=== PATIENT | female | born 1960 | race Caucasian/White ===

== ENCOUNTER 2019-04-06 12:55 | Outpatient (CLI) | payer OTHER, SELFPAY ==
--- NOTE | 2019-04-06 13:00 | ECG_ITS ---
Measurements Intervals [place] Rate: 83 P: 52 AL: 185 QRS: -6 QRSD: 90 T: 36 QT: 381 QTc: 449 Interpretive Statements SINUS RHYTHM LOW QRS VOLTAGE IN PRECORDIAL LEADS DELAYED PRECORDIAL R/S TRANSITION BASELINE ARTIFACT- I, II, III, AVR, AVL, AVF, V1-V6 BORDERLINE ECG Electronically Signed On 04-06-2019 16:25:34 DEPLOYMENT TECHNICIAN by Clyde Chavez D.O.
[2019-04-06 13:28] LABS: Hematocrit 40.2 % (37.0-47.0); Hemoglobin 13.5 g/dL (12.0-15.0)
[2019-04-06 13:42] LABS: Blood Urea Nitrogen 17 mg/dL (7-17); Calcium 9.2 mg/dL (8.4-10.2); Carbon Dioxide 23 mmol/L (22-30); Chloride 102 mmol/L (98-107); Estimated Glomerular Filt Rate > 60; Glucose 93 mg/dL (65-105); Potassium 4.7 mmol/L (3.4-5.0); Sodium 138 mmol/L (137-145)
== END 2019-04-06 12:56 | disposition home or self-care (01) ==
LOC: ANHSURGERY 13:00
PROVIDERS: Anesthesiology; Visit Provider Plastic Surgery
DX: Z01.818 Encounter for other preprocedural examination (principal); Z98.890 Other specified postprocedural states; D64.9 Anemia, unspecified
CPT/HCPCS: 36415; 80048; 85014; 85018; 93005

== ENCOUNTER 2019-04-18 00:38 | Day surgery (SDC) | payer OTHER, SELFPAY ==
[2019-04-03 17:21] VITALS: BMI 45.7
--- NOTE | 2019-04-17 21:04 | HP_ITS ---
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 HISTORY: This patient is 59. She was referred to me in February 2019, with left ulnar hand weakness and numbness. She has a history of having had somewhat recently right carpal tunnel release and right cubital tunnel release in 2018 and left cubital tunnel release in 2019. She says both of the ulnar nerves were transposed subcutaneously. She believes she got better after each surgery. She had a nerve conduction test prior to each surgery, but has had relapsing of ulnar digit numbness on the right hand and the left hand. She says this causes some trouble driving. She drops some things. 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 She believes onset of these symptoms was approximately a year ago. She has undergone some therapy. She apparently is being treated for some nerve pain with Lyrica and gabapentin. She does not tolerate those well. We have repeated a nerve conduction test. This is done by Dr. Leahy on March 22, 2019. This indicates bilateral ulnar neuropathy at the elbows. We have evaluated her couple of times and we have seen her in March. X-rays done of her wrists show moderate osteoarthritis of the 1st carpometacarpal joint on the right and mild at the same site on the left. She has had cervical spine films. She has consented to the re-exploration of the ulnar nerve at the right elbow under MAC anesthetic. MEDICATIONS: She takes some levothyroxine, Cymbalta. She uses some Tylenol No.3, was last filled on in middle march. ALLERGIES: SHE SAYS SHE HAS AN ALLERGY TO LYRICA. PAST SURGICAL HISTORY: She has had a tonsillectomy. She has had a gastric bypass in 2007. She has had an abdominoplasty. She has had a knee replacement, hernia repair. SOCIAL HISTORY: She is a nonsmoker. She is intolerant to NSAIDs because of her bad bypass. She does take iron supplements and drink cold Juice Plus and she takes vitamin B12. PHYSICAL EXAMINATION: She is an alert, informative lady. She is 5 feet, 8 inches, weight 293 pounds. She is in no distress, but reports frequently on condition of her hands, saying how much she can do and how numb the ulnar digits are. ASSESSMENT: She has recurrent ulnar neuropathy at the elbows and we are planning a reexploration of the right cubital tunnel region to release compression on the right ulnar nerve at the elbow under MAC anesthetic. D I MT: Erich PERES
--- NOTE | 2019-04-18 07:24 | WPDHPUPDATE1 ---
History and Physical Update Update Date/Time: 04/18/19 07:24 History and Physical has been reviewed, including an updated exam of the patient. There are NO changes in the patient's condition. Risks, benefits, and alternatives have been discussed and questions answered. Patient agrees to proceed with procedure.
--- NOTE | 2019-04-18 07:51 | WPDANESEPPF ---
Anes - Initial Pre Proc Eval Procedure: Operation Date: 04/18/19 09:00 Proposed Procedures p Right Ulnar Neuroplasty At The Elbow - Ramesh Vazquez MD Date/Time: 04/18/19 07:51 Surgeon: Ramesh Vazquez MD Pre Op Diagnosis: Ulnar Neuropathy Right Upper Limb Patient Data Age: 59 Gender: F Height: 5 ft 8 in Weight: 136.44 kg Allergies Allergy/AdvReac Type Severity Reaction Status Date / Time pregabalin [From Lyrica] AdvReac Intermediate Dizziness Verified 04/03/19 17:45 NSAIDS (Non-Steroidal AdvReac Unknown Verified 04/03/19 18:02 Anti-Inflamma Home Medications Medication Instructions Recorded Confirmed Type Iron (ferrous sulfate) 27 mg PO BID 04/03/19 04/03/19 History acetaminophen-codeine 1 tablet PO PRN PRN 04/03/19 04/03/19 History doxepin 25 mg PO QPM 04/03/19 04/03/19 History duloxetine 60 mg PO QPM 04/03/19 04/03/19 History levothyroxine 100 mcg PO DAILY 04/03/19 04/03/19 History losartan 25 mg PO DAILY 04/03/19 04/03/19 History spironolactone 100 mg PO BID 04/03/19 04/03/19 History Patient hx anesthesia problems: none Family hx anesthesia problems: none [facility] Past Medical History Medical History (Updated 04/18/19 @ 07:51 by Jerome Urban MD) Anxiety Depression Hypertension Hypothyroid Morbid obesity Anes - Eval Final PreProcedure Day of Procedure 04/18/19 07:51 Patient weight: morbidly obese Heart: regular rate and rhythm Lungs: clear to auscultation Airway: Mallampati scale class II Neurological: alert and oriented Last oral intake: >/= 8 hours ASA classification: III Emergent: no Anesthetic plan: proceed Anesthesia type and monitoring: general LMA and standard monitoring Informed Consent: The patient's anesthetic plan and its attendant risks and benefits were discussed with the patient/family/POA. Questions were solicited and answers provided to the satisfaction of the patient/family/POA.
[2019-04-18 07:59] VITALS: BP 146/86; PULSE 78; RESP 20; TEMP 36.6; O2SAT 97
[2019-04-18] MEDS: LACTATED RINGERS 1,000 ML 30 ML IV CONT (08:01)
--- NOTE | 2019-04-18 08:51 | WPDANESEPPF ---
Anes - Initial Pre Proc Eval Procedure: Operation Date: 04/18/19 09:00 Proposed Procedures p Right Ulnar Neuroplasty At The Elbow - Ramesh Vazquez MD Date/Time: 04/18/19 08:51 Surgeon: Ramesh Vazquez MD Pre Op Diagnosis: Ulnar Neuropathy Right Upper Limb Patient Data Age: 59 Gender: F Height: 5 ft 8 in Weight: 135.2 kg Last Vital Signs Temp 97.9 F 04/18/19 07:59 Pulse 78 04/18/19 07:59 Resp 20 04/18/19 07:59 BP 146/86 H 04/18/19 07:59 Pulse Ox 97 04/18/19 07:59 Allergies Allergy/AdvReac Type Severity Reaction Status Date / Time pregabalin [From Lyrica] AdvReac Intermediate Dizziness Verified 04/03/19 17:45 NSAIDS (Non-Steroidal AdvReac Unknown Verified 04/03/19 18:02 Anti-Inflamma Home Medications Medication Instructions Recorded Confirmed Type Iron (ferrous sulfate) 27 mg PO BID 04/03/19 04/18/19 History acetaminophen-codeine 1 tablet PO PRN PRN 04/03/19 04/18/19 History doxepin 25 mg PO QPM 04/03/19 04/18/19 History duloxetine 60 mg PO QPM 04/03/19 04/18/19 History levothyroxine 100 mcg PO DAILY 04/03/19 04/18/19 History losartan 25 mg PO DAILY 04/03/19 04/18/19 History spironolactone 100 mg PO BID 04/03/19 04/18/19 History Patient hx anesthesia problems: none Family hx anesthesia problems: none [facility] Past Medical History Medical History (Updated 04/18/19 @ 07:51 by Jerome Urban MD) Anxiety Depression Hypertension Hypothyroid Morbid obesity Anes - Eval Final PreProcedure Day of Procedure 04/18/19 08:51 Patient weight: morbidly obese Heart: regular rate and rhythm Lungs: clear to auscultation Airway: Mallampati scale class III Neurological: alert and oriented Last oral intake: >/= 8 hours ASA classification: IV Emergent: no Anesthetic plan: proceed Anesthesia type and monitoring: general GIVS and standard monitoring Informed Consent: The patient's anesthetic plan and its attendant risks and benefits were discussed with the patient/family/POA. Questions were solicited and answers provided to the satisfaction of the patient/family/POA.
[2019-04-18] MEDS: LIDO 1%/EPINEPHRINE 1:100,000 20 ML VIAL 10 ML INFILTRATE (09:54)
--- NOTE | 2019-04-18 10:02 | SUR.OPER ---
ebl:[id number]
--- NOTE | 2019-04-18 10:17 | PM.OP ---
Procedure Note - Brief Procedure Note - Brief Date of procedure: 04/18/19 Pre-op diagnosis: Ulnar Neuropathy Right Upper Limb Post-op diagnosis: same Procedure performed: Left ulnar neuroplasty at the elbow. Anesthesia: MAC Surgeon: Ramesh Vazquez MD Career Professional: Teresa Estimated blood loss (mL): 5 Tourniquet time (min): 16 Drains: No Packing: No Pathology: none sent Complications: No immediate complications Condition: stable Disposition: same day
[2019-04-18 10:35] VITALS: BP 132/72; PULSE 92; RESP 16; TEMP 36.6; O2SAT 92
--- NOTE | 2019-04-18 10:36 | PM.PROC ---
Procedure Note - Detailed Date of procedure: 04/18/19 Pre-op diagnosis: Ulnar Neuropathy Right Upper Limb Recurrent ulnar compression neuropathy at the right elbow. Post-op diagnosis: same Procedure performed: Right ulnar neuroplasty at the elbow. Description of procedure: Laura has undergone bilateral ulnar neuroplasty several years ago. She said she did well initially. For the past year and a half for so she has had recurring symptoms. She believes that the nerve was transposed in both cases. The scar on the left side is considerably longer than the 1 on the right. Her main complaints are numbness in the ulnar 2 digits. The site on the right elbow was marked in the holding area. She was taken to the operating room and placed supine on the operating table. She was given IV sedation time-out was held and confirmed the right upper extremity was prepped and draped in usual fashion. The site was remarked for an incision that would parallel the course of the ulnar nerve. This deviated somewhat from her existing scar. This line was infiltrated with 1% lidocaine with epinephrine. The tourniquet was inflated to 250 mmHg. The elbow was flexed and supported on folded towels. The incision was made as marked and dissection was carried through the ample subcutaneous tissue to the posterior aspect of the medial epicondyle. Along the way we identified a seroma near the olecranon. This contained clear fluid. It did not appear to lie in a position that would compress the ulnar nerve. It would not have contained more than 5 milliliter of fluid. The nerve was identified just anterior to the triceps muscle at the posterior aspect of the olecranon. This did not appear to be in a transposed position. Dissection followed the nerve proximally to completely release any structures overlying it for a distance of at least 5 cm no significant bleeding was caused. Of following there were distally there was overlying fascial tissue in the region between the olecranon and the medial epicondyle. The nerve under this area appears slightly darker and there were more vessels tracking the nerve in this area. We did not notice significant deformity of the nerve. The nerve was followed distally under the flexor muscle fascia. This was also released at least 5 cm in the upper forearm again no significant bleeding was started. Did not appear that the nerve had been transposed nor did not need to be. The tourniquet was released and bleeding points were meticulously coagulated on a Bovie setting of 20. To once the wound appeared dry the wound margins were approximated 2 deep sutures were placed to try to approximate the tissue around the seroma. And the dermis was approximated and cross hatched marked. These sutures were 3-0 Monocryl. The skin was then closed with running intradermal 3-0 Monocryl. The usual gauze and Keshav wrap bandage was applied. Patient received no antibiotics. Estimated blood loss 5 milliliter. Patient is discharged home with instructions in wound care and follow-up. She will have hydrocodone 07/07/2024 prescribed for discharge 10. Anesthesia: MAC Surgeon: Ramesh Vazquez MD Entry Level Software Engineer: Teresa
[2019-04-18 11:05] VITALS: BP 144/95; PULSE 81; RESP 20
== END 2019-04-18 11:35 | disposition home or self-care (01) ==
PROVIDERS: Visit Provider Plastic Surgery
PROC: (CPT 64718; principal; 2019-04-18 09:00)
DX: G56.21 Lesion of ulnar nerve, right upper limb (principal); I10 Essential (primary) hypertension; E03.9 Hypothyroidism, unspecified; F41.8 Other specified anxiety disorders; E66.01 Morbid (severe) obesity due to excess calories; Z68.42 Body mass index [BMI] 45.0-49.9, adult
CPT/HCPCS: 64718; A9270; J2250; J2704; J3010; J7120

== ENCOUNTER 2019-07-25 12:42 | Outpatient (CLI) | payer OTHER, SELFPAY ==
--- NOTE | ~2019-07-25 | XR_ITS ---
EXAMINATION: XR sm joint inject/asp w image DATE: 07/25/2019 13:42 INDICATION: Osteoarthritis with pain at the right first carpal metacarpal joint TECHNIQUE: A time-out was performed to verify the patient's name, date of , and procedure to b e performed. The procedure including the risks, benefits, and alternatives was discussed with the pat ient. Risks discussed included bleeding and infection. The patient understood the risks and agreed to proceed. The skin overlying the dorsal aspect of the right first carpal metacarpal joint was preppe d and draped in usual sterile fashion. Anesthetic was administered with 1% lidocaine subcutaneously. A 23 G needle was advanced under fluoroscopic guidance into the joint. Injection of 0.4 mL of Omni paque 240 confirmed intra-articular position of the needle. Subsequently, injectate consisting of 1 mg of 6 mg/mL betamethasone for a total dosage of 6 mg of betamethasone was instilled. Washout of con trast was seen confirming intra-articular administration. The needle was removed and the entry site w as cleaned and dressed. There were no immediate complications. Fluoroscopy exposure time was 0.4 min utes. The total number of images was 2. FINDINGS: Real-time fluoroscopy demonstrates the needle in the right first carpometacarpal joint. Pat ient's pain prior to procedure:09/13. Patient's pain following the procedure: 11/14. IMPRESSION: 1. Successful right first carpal metacarpal joint steroid injection. Reviewed, dictated and finalized at location A.
== END 2019-07-25 12:43 | disposition home or self-care (01) ==
PROVIDERS: Visit Provider Plastic Surgery
DX: M19.041 Primary osteoarthritis, right hand (principal)
CPT/HCPCS: 20600; 77002; J0702; Q9966

== ENCOUNTER 2019-09-24 00:56 | Outpatient (CLI) | payer OTHER, SELFPAY ==
[2019-09-24 19:20] LABS: SARS-CoV-2 RNA PCR Negative
== END 2019-09-24 00:57 | disposition home or self-care (01) ==
LOC: ANHCOVIDDT 00:56
PROVIDERS: Anesthesiology; Visit Provider Plastic Surgery
DX: Z01.812 Encounter for preprocedural laboratory examination (principal); Z11.59 Encounter for screening for other viral diseases
CPT/HCPCS: 36415; 80048; 87635; C9803; U0003

== ENCOUNTER 2019-09-24 07:38 | Outpatient (CLI) | payer OTHER, SELFPAY ==
[2019-09-24 08:11] LABS: Blood Urea Nitrogen 16 mg/dL (7-17); Calcium 9.1 mg/dL (8.4-10.2); Carbon Dioxide 23 mmol/L (22-30); Chloride 106 mmol/L (98-107); Estimated Glomerular Filt Rate > 60; Glucose 94 mg/dL (65-105); Potassium 4.2 mmol/L (3.4-5.0); Sodium 137 mmol/L (137-145)
== END 2019-09-24 07:39 | disposition home or self-care (01) ==
PROVIDERS: Anesthesiology; Visit Provider Plastic Surgery
DX: I10 Essential (primary) hypertension (principal)
CPT/HCPCS: 36415; 80048

== ENCOUNTER 2019-09-26 02:26 | Day surgery (SDC) | payer OTHER, SELFPAY ==
[2019-09-13 13:41] VITALS: BMI 46.2
[2019-09-26] VITALS (7 sets, daily range): BP systolic 104–155; BP diastolic 56–93; PULSE 75–91; RESP 15–20; TEMP 36.3–36.5; O2SAT 98–100
--- NOTE | 2019-09-26 07:14 | WPDANESEPPF ---
Anes - Initial Pre Proc Eval Procedure: Operation Date: 09/26/19 07:30 Proposed Procedures p Left Ulnar Neuroplasty At The Elbow - Ramesh Vazquez MD Date/Time: 09/26/19 07:14 Surgeon: Ramesh Vazquez MD Pre Op Diagnosis: Left Cubital Tunnel Syndrome Patient Data Age: 59 Gender: F Height: 5 ft 8.5 in Weight: 140 kg Allergies Allergy/AdvReac Type Severity Reaction Status Date / Time pregabalin [From Lyrica] AdvReac Intermediate Dizziness Verified 09/13/19 13:39 NSAIDS (Non-Steroidal AdvReac Unknown Gastrointestinal Verified 09/13/19 13:39 Anti-Inflamma Upset Home Medications Medication Instructions Recorded Confirmed Type Iron (ferrous sulfate) 27 mg PO BID 04/03/19 09/13/19 History acetaminophen-codeine 1 tablet PO PRN PRN 04/03/19 09/13/19 History doxepin 25 mg PO QPM 04/03/19 09/13/19 History duloxetine 60 mg PO QPM 04/03/19 09/13/19 History levothyroxine 100 mcg PO DAILY 04/03/19 09/13/19 History losartan 25 mg PO DAILY 04/03/19 09/13/19 History spironolactone 100 mg PO BID 04/03/19 09/13/19 History Patient hx anesthesia problems: none Family hx anesthesia problems: none [facility] Past Medical History Medical History (Updated 04/18/19 @ 07:51 by Jerome Urban MD) Anxiety Depression Hypertension Hypothyroid Morbid obesity Social History Social History Smoking status: Never smoker Alcohol use details: LAST DRINK 3 MONTHS AGO Substance use: never Living arrangements: alone Anes - Eval Final PreProcedure Day of Procedure 09/26/19 07:14 Patient weight: morbidly obese Heart: regular rate and rhythm Lungs: clear to auscultation Airway: Mallampati scale class III Neurological: alert and oriented Last oral intake: >/= 8 hours ASA classification: III Emergent: no Anesthetic plan: proceed Anesthesia type and monitoring: general LMA and standard monitoring Informed Consent: The patient's anesthetic plan and its attendant risks and benefits were discussed with the patient/family/POA. Questions were solicited and answers provided to the satisfaction of the patient/family/POA.
--- NOTE | 2019-09-26 07:15 | WPDHPUPDATE1 ---
History and Physical Update Update Date/Time: 09/26/19 07:15 History and Physical has been reviewed, including an updated exam of the patient. There are NO changes in the patient's condition. Risks, benefits, and alternatives have been discussed and questions answered. Patient agrees to proceed with procedure.
--- NOTE | 2019-09-26 07:20 | PM.IMHP ---
H&P: HPI History of Present Illness Chief complaint: Left Cubital Tunnel Syndrome Narrative: Laura Castro is a 59 year old female recurrent left cubital tunnel syndrome. Documented by NCV. Had been operated with anterior transposition around 2016 elsewhere. Did well for a while. Now C/O pain weakness and numbness in ulnar digits. She is aware of possible complications having had similar procedures done three times in the past. Review of Systems Review of Systems: Narrative: Multiple hand complaints related to several other diagnoses. Constitutional: Comments: See dictated H&P PMFSH Past Medical History Medical History (Updated 04/18/19 @ 07:51 by Jerome Urban MD) Anxiety Depression Hypertension Hypothyroid Morbid obesity Social History Social History Smoking status: Never smoker Alcohol use details: LAST DRINK 3 MONTHS AGO Substance use: never Living arrangements: alone Meds Home Medications and Allergies Home Medications Medication Instructions Recorded Confirmed Type Iron (ferrous sulfate) 27 mg PO BID 04/03/19 09/13/19 History acetaminophen-codeine 1 tablet PO PRN PRN 04/03/19 09/13/19 History doxepin 25 mg PO QPM 04/03/19 09/13/19 History duloxetine 60 mg PO QPM 04/03/19 09/13/19 History levothyroxine 100 mcg PO DAILY 04/03/19 09/13/19 History losartan 25 mg PO DAILY 04/03/19 09/13/19 History spironolactone 100 mg PO BID 04/03/19 09/13/19 History Allergies Allergy/AdvReac Type Severity Reaction Status Date / Time pregabalin [From Lyrica] AdvReac Intermediate Dizziness Verified 09/13/19 13:39 NSAIDS (Non-Steroidal AdvReac Unknown Gastrointestinal Verified 09/13/19 13:39 Anti-Inflamma Upset Exam Narrative: Exam Narrative: Please refer to dictated H&P Assessment and Plan Additional Plan Recurrent left cubital tunnel syndrome. Left ulnar neuroplasty.
[2019-09-26] MEDS: LACTATED RINGERS 1,000 ML 30 ML IV CONT (07:35)
--- NOTE | 2019-09-26 07:37 | HP_ITS ---
DATE OF SERVICE: 09/26/2019 PREOPERATIVE DIAGNOSIS: Left cubital tunnel syndrome. HISTORY: The patient was initially evaluated in February 2019 for left hand weakness and numbness. She had bilateral ulnar nerve transposition elsewhere in 2017 on the right and then 2018 on the left. She thought she improved after the surgery. The nerve conduction test prior to that apparently indicated cubital tunnel, now she is having increasing frequency of numbness in the ulnar 2 digits, is having trouble driving, drops things. 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 She cannot perform some of the daily tasks of normal living, and she is having cramping in the hand. She has been treated with Lyrica and gabapentin, but she does not tolerate them well, and at one point, she lost a job because of the amount of time that she had to take off for this condition. A nerve conduction test done 03/22/2019 at [facility] revealed bilateral ulnar neuropathy. The right localizes at the elbow, the left not so much. She has had x-rays of her wrists showing milder to moderate osteoarthritis. She has had cervical spine films which do not incriminate the cervical spine as the reason for her hand complaint. She has been taking vitamin B supplements, having had a gastric bypass in 2007. She has been told that her vitamin B is actually high. In April 2019, we undertook right ulnar neuroplasty at the elbow and she has noticed improvement on that side with sensation returning to the ulnar digits and motor function improving. We believe that the surgery on the left side involved the transposition of the ulnar nerve. She has had other complaints in her hands as well and some of these have been treated with cortisone injections. MEDICATIONS: Indicates she is taking levothyroxine. She has had some Tylenol No.3, Cymbalta, and she takes something for lipids and for high blood pressure, but did not provide the name. ALLERGIES: SHE LISTS AN ALLERGY TO LYRICA AND SHE IS INTOLERANT TO NSAIDS BECAUSE OF THE GASTRIC BYPASS WHICH WAS DONE IN [place] IN 2007. PAST MEDICAL HISTORY: She says chronic conditions include arthritis in both knees. PAST SURGICAL HISTORY: Prior surgeries include tonsillectomy, an abdominoplasty, knee replacement, gastric bypass, hernia repair, , the ulnar nerve surgery and carpal tunnel release. SOCIAL HISTORY: She is a nonsmoker. REVIEW OF SYSTEMS: Did not reveal other complaints. She remains obese. Her body mass index is roughly 43.3 on a 5 feet 9 inch frame, weighing 293 pounds. That data is about 7 months old. FAMILY HISTORY: Noncontributory. SOCIAL HISTORY: She lives in [place], [place]. She is not currently employed. PHYSICAL EXAMINATION: GENERAL: She is a slightly depressed-appearing lady, who provides excellent history and has been consistent in her complaints regarding her hands. HEENT: Unremarkable. CHEST: Clear to auscultation. HEART: Regular rate and rhythm by palpation. ABDOMEN: Obese, nontender. EXTREMITIES: All work well. She ambulates with some difficulty, especially getting out of a chair. Specifically regarding her hands, she has weakness of the intrinsic muscles in her hands. On the left with wrist compression, she has tingling in the 4th and 5th digits. ASSESSMENT: Left cubital tunnel syndrome. The patient is aware that she probably had a transposition on a prior left ulnar neuroplasty and this will complicate the case. Her primary risks are injury to this nerve or injury to a cutaneous nerve bridging area, hematoma, bleeding, infection, anesthetic risks and others and she would like to proceed. DIAGNOSIS: Left ulnar compression neuropathy at the elbow. PLAN: Left ulnar neuroplasty under general anesthesia.
[2019-09-26] MEDS: LIDO 1%/EPINEPHRINE 1:100,000 20 ML VIAL INFILTRATE (08:02)
--- NOTE | 2019-09-26 08:44 | PM.OP ---
Procedure Note - Brief Procedure Note - Brief Date of procedure: 09/26/19 Pre-op diagnosis: Left Cubital Tunnel Syndrome Recurrent left cubital tunnel syndrome Post-op diagnosis: same Procedure performed: L ulnar neuroplasty at the [facility]. Anesthesia: GLMA Surgeon: Ramesh Vazquez MD Estimated blood loss (mL): 3 Tourniquet time (min): 27 Drains: No Packing: No Pathology: none sent Complications: No immediate complications Disposition: PACU
--- NOTE | 2019-09-26 08:58 | P.OP_ITS ---
Procedure Note - Detailed Date of procedure: 09/26/19 Pre-op diagnosis: Left Cubital Tunnel Syndrome Post-op diagnosis: same Procedure performed: Left ulnar neuroplasty at the elbow for recurrent symptoms. Description of procedure: The site was marked on the patient's left elbow in the holding area. She was taken to the operating room placed supine on the operating table. Time-out was held and confirmed. She was given general anesthesia the left upper extremity was prepped and draped in usual fashion. The site was marked for an incision following the existing scar line. This area was infiltrated with 1% lidocaine with epinephrine. The tourniquet was inflated to 250 mmHg. The incision was made as marked. Dissection was carried down through the scarred subcutaneous tissue to the medial epicondyle. This area was carefully explored for the ulnar nerve which had been transposed on a previous surgery. The nerve was identified distal to the medial epicondyle where it entered into the flexor muscle. The nerve appeared to be fairly normal in that area and was dissected proximally very carefully through dense scarring. The nerve and took a curve anteriorly around the medial epicondyle where there was thick scar restraining the nerve in that area. This was carefully divided with knife and scissors. The nerve appeared to be of narrow caliber through that area. More proximally the nerve remained of small caliber but was not tightly encased in any scar. The nerve was not skeletonized in most areas soft tissue attachments for vascular supply were left intact. The nerve did not sublux at all at that point. We went ahead to close the skin in usual fashion with interrupted intradermal 3-0 Monocryl and in running intradermal 3-0 Monocryl. The usual bulky bandage was applied. The tourniquet had been releas ed prior to closure and there was no significant bleeding, no cautery was utilized. The patient is discharged home with instructions in wound care and follow-up. She has a prescription for hydrocodone 5/325 14. . She receives from another source hydrocodone on a regular monthly basis but it is prescribed for 1 tablet per day only. No antibiotics were given, estimated blood loss 3 milliliter, tourniquet times 27 minutes Surgeon: Ramesh Vazquez MD
== END 2019-09-26 10:50 | disposition home or self-care (01) ==
PROVIDERS: Visit Provider Plastic Surgery
PROC: (CPT 64718; principal; 2019-09-26 07:30)
DX: G56.22 Lesion of ulnar nerve, left upper limb (principal); I10 Essential (primary) hypertension; E03.9 Hypothyroidism, unspecified; F41.8 Other specified anxiety disorders; E66.01 Morbid (severe) obesity due to excess calories; Z68.42 Body mass index [BMI] 45.0-49.9, adult
CPT/HCPCS: 64718; A9270; J2250; J2405; J2704; J7120